=== PATIENT | female | born 1990 | race African-American/Black ===

== ENCOUNTER 2017-11-19 05:19 | Emergency (ER) | payer MEDICAID ==
[~2017-11-19] VITALS: Ht 172.7 cm; Wt 82.0 kg
[~2017-11-19 05:19] MED LIST: ALBU6.7H INH; PNV1TABL76 MT
[2017-11-19] MEDS ORDERED: SODIUM CHLORIDE 0.9% 1,000 ML IV ONE (06:19)
[2017-11-19] MEDS ORDERED: ALBUTEROL (0.083%) 2.5MG/3ML NEB HHN STA (06:19)
[2017-11-19] MEDS ORDERED: ONDANSETRON HCL 4MG/2ML INJ IV STA (06:19)
[2017-11-19] MEDS ORDERED: METHYLPREDNISOLONE SOD SUCC 125 MG/2 ML VIAL IV STA (06:19)
[2017-11-19] MEDS ORDERED: MORPHINE SULFATE 4 MG/ML CPJ (NOT FOR IM USE) IV STA (06:19)
[2017-11-19] MEDS ORDERED: IPRATROPIUM BROMIDE (0.02%) 0.5MG/2.5ML NEB HHN STA (06:19)
[2017-11-19 06:58] LABS: CLARITY URINE TURBID (CLEAR); COLOR URINE YELLOW (YELLOW); KETONES URINE NEGATIVE (NEGATIVE); LEUKOCYTE ESTERASE URINE 3+ (NEGATIVE); NITRITE URINE POSITIVE (NEGATIVE); OCCULT BLOOD URINE 2+ (NEGATIVE); PROTEIN URINE 2+ (NEGATIVE)
[2017-11-19 06:58] LABS: BASOPHILS % 0.5 % (0.0-2.0); EOSINOPHILS % 0.7 % (0.0-5.0); HEMATOCRIT. 35.2 % (36.0-48.0); HEMOGLOBIN. 11.9 g/dL (12.0-16.0); LYMPHOCYTES % 9.9 % (20.0-50.0); MEAN CORPUSCULAR HEMOGLOBIN 29.1 pg (28.0-32.0); MEAN CORPUSCULAR VOLUME 86.4 fL (81.0-99.0); MONOCYTES % 7.1 % (2.0-8.0); NEUTROPHILS % 81.8 % (40.0-76.0); PLATELET 240 x1000/uL (130-400); RED BLOOD CELL COUNT 4.08 mill/uL (4.2-5.4); RED CELL DISTRIBUTION WIDTH 14.3 % (11.6-14.6)
[2017-11-19] MEDS ORDERED: CEFTRIAXONE 1 G PREMIX 50 ML IV ONE (07:00)
[2017-11-19 07:05] LABS: CHLORIDE 104 mEq/L (98-107)
[2017-11-19 07:06] LABS: INR 1.1; PROTHROMBIN TIME 11.1 sec (9.1-11.1)
[2017-11-19 07:07] LABS: HCG SCREEN NEGATIVE
[2017-11-19] MEDS ORDERED: POTASSIUM CHLORIDE 20MEQ TABLET SR PO NR (07:15)
[2017-11-19] MEDS ORDERED: KETOROLAC 30MG/ML VIAL IV ONE (08:30)
[2017-11-19 09:43] VITALS: BP 121/70
== END 2017-11-19 10:16 | disposition home or self-care (01) ==
LOC: ER 05:19
DX: N10 Acute pyelonephritis (principal); E87.6 Hypokalemia; D64.9 Anemia, unspecified; J45.901 Unspecified asthma with (acute) exacerbation; K80.50 Calculus of bile duct without cholangitis or cholecystitis without obstruction; R50.9 Fever, unspecified; R51 Headache
CPT/HCPCS: 36415; 71045; 76705; 80053; 81003; 83605; 83690; 84703; 85025; 85610; 87077; 87086; 87186; 94640; 96365; 96375; 99285; J0696; J1885; J2270; J2405; J2930; J7030; J7040; J7611; Z7610

== ENCOUNTER 2018-05-27 09:20 | Emergency (ER) | payer MEDICAID ==
[~2018-05-27] VITALS: Ht 170.2 cm; Wt 84.0 kg
[2018-05-27] MEDS ORDERED: ACETAMINOPHEN 325MG TABLET PO PRN (10:30)
[2018-05-27] MEDS ORDERED: ACETAMINOPHEN 500MG TABLET PO SCH (11:00)
[2018-05-27 11:03] LABS: BASOPHILS % 0.4 % (0.0-2.0); EOSINOPHILS % 1.7 % (0.0-5.0); HEMOGLOBIN. 10.9 g/dL (12.0-16.0); LYMPHOCYTES % 28.1 % (20.0-50.0); MEAN CORPUSCULAR VOLUME 88.3 fL (81.0-99.0); MEAN PLATELET VOLUME 8.3 fl (7.4-10.4); MONOCYTES % 5.9 % (2.0-8.0); NEUTROPHILS % 63.9 % (40.0-76.0); PLATELET 226 x1000/uL (130-400); RED BLOOD CELL COUNT 3.62 mill/uL (4.2-5.4); RED CELL DISTRIBUTION WIDTH 14.2 % (11.6-14.6)
[2018-05-27 11:11] LABS: CHLORIDE 106 mEq/L (98-107)
[2018-05-27 11:47] LABS: B-HCG QUANTITATIVE 13854 mIU/mL (<3)
[2018-05-27 14:13] LABS: CLARITY URINE CLOUDY (CLEAR); COLOR URINE YELLOW (YELLOW); KETONES URINE 4+ (NEGATIVE); LEUKOCYTE ESTERASE URINE 2+ (NEGATIVE); NITRITE URINE POSITIVE (NEGATIVE); OCCULT BLOOD URINE NEGATIVE (NEGATIVE); PROTEIN URINE NEGATIVE (NEGATIVE); SPECIFIC GRAVITY URINE 1.033 (1.005-1.030)
[2018-05-27 16:02] VITALS: BP 108/60
== END 2018-05-27 16:03 | disposition home or self-care (01) ==
LOC: ER 09:20
DX: O23.42 Unspecified infection of urinary tract in pregnancy, second trimester (principal); O99.89 Other specified diseases and conditions complicating pregnancy, childbirth and the puerperium; S89.91XA Unspecified injury of right lower leg, initial encounter; S79.911A Unspecified injury of right hip, initial encounter; O99.512 Diseases of the respiratory system complicating pregnancy, second trimester; J45.909 Unspecified asthma, uncomplicated; Z3A.16 16 weeks gestation of pregnancy; Z79.899 Other long term (current) drug therapy; W01.0XXA Fall on same level from slipping, tripping and stumbling without subsequent striking against object, initial encounter; Y93.89 Activity, other specified; Y92.89 Other specified places as the place of occurrence of the external cause; Y99.8 Other external cause status
CPT/HCPCS: 36415; 73560; 73610; 76805; 84702; 86850; 86900; 87077; 87186; 99284